=== PATIENT | male | born 1990 | race Caucasian/White ===

== ENCOUNTER 2017-02-26 23:38 | Emergency (ER) | payer MEDICAID ==
[~2017-02-26] VITALS: Ht 188 cm; Wt 70.0 kg
[~2017-02-26 23:38] MED LIST: HYDR-3965 PO; ONDA4TAB12 PO; clindamycin PO
[2017-02-27] MEDS ORDERED: CLIN-80 PO (00:04)
[2017-02-27] MEDS ORDERED: clindamycin 150mg capsule PO ONE (00:05)
[2017-02-27 00:14] VITALS: BP 125/91
== END 2017-02-27 00:17 | disposition home or self-care (01) ==
LOC: ER 23:39
DX: L03.114 Cellulitis of left upper limb (principal); G89.29 Other chronic pain; F15.10 Other stimulant abuse, uncomplicated; Z86.19 Personal history of other infectious and parasitic diseases; Z98.890 Other specified postprocedural states
CPT/HCPCS: 99283

== ENCOUNTER 2017-09-25 21:29 | Emergency (ER) | payer MEDICAID, OTHER ==
[~2017-09-25] VITALS: Ht 188 cm; Wt 48.0 kg
[~2017-09-25 21:29] MED LIST changes: +PHEN30SP9 PO
[2017-09-25 21:35] VITALS: BP 133/89
[2017-09-25] MEDS ORDERED: TRAM50TA2 PO (21:52)
[2017-09-25] MEDS ORDERED: PENI250T2 PO (22:03)
== END 2017-09-25 22:55 | disposition home or self-care (01) ==
LOC: ER 21:30
DX: K04.7 Periapical abscess without sinus (principal); G89.29 Other chronic pain; F15.90 Other stimulant use, unspecified, uncomplicated; Z79.899 Other long term (current) drug therapy
CPT/HCPCS: 64400; 99284

== ENCOUNTER 2017-10-20 10:58 | Emergency (ER) | payer MEDICAID ==
[~2017-10-20] VITALS: Ht 188 cm; Wt 77.0 kg
[~2017-10-20 10:58] MED LIST changes: +TRAM50TA2 PO
[2017-10-20 11:01] VITALS: BP 126/86
[2017-10-20] MEDS ORDERED: ketorolac trometh inj. 60 MG/2 ML VIAL IM ONE (11:45)
[2017-10-20] MEDS ORDERED: AZIT-63 PO (11:53)
[2017-10-20] MEDS ORDERED: NAPR-56 PO (12:00)
== END 2017-10-20 12:26 | disposition home or self-care (01) ==
LOC: ER 10:59
DX: J20.9 Acute bronchitis, unspecified (principal); R09.1 Pleurisy; G89.29 Other chronic pain; F15.90 Other stimulant use, unspecified, uncomplicated; F17.210 Nicotine dependence, cigarettes, uncomplicated; Z79.2 Long term (current) use of antibiotics; Z98.890 Other specified postprocedural states
CPT/HCPCS: 71046; 93005; 96372; 99284; J1885

== ENCOUNTER 2017-10-28 19:10 | Emergency (ER) | payer MEDICAID ==
[~2017-10-28] VITALS: Ht 660.3 cm; Wt 80.0 kg
[~2017-10-28 19:10] MED LIST changes: +AZIT-63 PO; +NAPR-56 PO; -TRAM50TA2 PO
[2017-10-28] MEDS ORDERED: IBUP-1986 PO (22:08)
[2017-10-28] MEDS ORDERED: ibuprofen tablet 400 MG TABLET PO ONE (22:10)
[2017-10-28 22:19] VITALS: BP 130/87
== END 2017-10-28 22:20 | disposition home or self-care (01) ==
LOC: ER 19:11
DX: M54.89 Other dorsalgia (principal); G89.29 Other chronic pain; F17.200 Nicotine dependence, unspecified, uncomplicated; F15.90 Other stimulant use, unspecified, uncomplicated; Z79.899 Other long term (current) drug therapy
CPT/HCPCS: 99283

== ENCOUNTER 2018-02-09 23:01 | Emergency (ER) | payer MEDICAID ==
[~2018-02-09] VITALS: Ht 188 cm; Wt 68.0 kg
[~2018-02-09 23:01] MED LIST changes: -AZIT-63 PO; +IBUP-1986 PO; -NAPR-56 PO
[2018-02-09 23:08] VITALS: BP 134/87
--- NOTE | 2018-02-09 23:17 | NUR ---
YESSENIA - CASE\LOG #[id number]
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
[2018-02-10] MEDS ORDERED: ketorolac trometh inj. 60 MG/2 ML VIAL IM ONE (00:20)
--- NOTE | 2018-02-10 00:47 | NUR ---
WENT TO ADMINISTER MED. HE IS TOO SLEEPY TO WAKE UP. HE WONT ROLL ONTO HIS SIDE TO GET THE MED. THEN HE FINALLY DID MOVE A BIT, I WAS PUTTING ALCOHOL ON IT. HE JERKED LIKE I WAS POKING HIM. I TOLD HIM IT WAS ONLY ALCOHOL. THEN WHEN I WENT TO GIVE THE MED I LITERALLY SAID 'HERE COMES A NEEDLE, HOLD STILL' AND WHEN I POKED THE NEEDLE INTO HIS SKIN HE LITERRALLY MOVED ALL THE WAY AWAY FROM THE NEEDLE. I JUST STOPPED. WILL NOT RE ATTEMPT R/T DANGER TO GETTING POKED BY HIS REACTION.
== END 2018-02-10 00:50 | disposition home or self-care (01) ==
LOC: ER 23:02
DX: R07.89 Other chest pain (principal); G89.29 Other chronic pain; F15.90 Other stimulant use, unspecified, uncomplicated; Z86.19 Personal history of other infectious and parasitic diseases; Z79.899 Other long term (current) drug therapy; Z79.2 Long term (current) use of antibiotics
CPT/HCPCS: 71045; 71120; 99283; J1885

== ENCOUNTER 2018-02-11 20:22 | Emergency (ER) | payer MEDICAID ==
[~2018-02-11] VITALS: Ht 188 cm; Wt 69.3 kg
[2018-02-11 20:28] VITALS: BP 131/86
[2018-02-11] MEDS ORDERED: ketorolac trometh inj. 60 MG/2 ML VIAL IM ONE (21:20)
== END 2018-02-11 22:10 | disposition home or self-care (01) ==
LOC: ER 20:22
DX: R07.89 Other chest pain (principal); G89.29 Other chronic pain; F15.10 Other stimulant abuse, uncomplicated; Z79.899 Other long term (current) drug therapy; Z86.19 Personal history of other infectious and parasitic diseases
CPT/HCPCS: 71045; 93005; 96372; 99283; J1885

== ENCOUNTER 2018-04-24 22:16 | Emergency (ER) | payer MEDICAID ==
[~2018-04-24] VITALS: Ht 188 cm; Wt 49.2 kg
[~2018-04-24 22:16] MED LIST changes: +CEPH500C5 PO
[2018-04-24 23:27] LABS: ALANINE AMINOTRANSFERASE 102 U/L (12-78); ALBUMIN 4.1 G/DL (3.4-5.0); ALBUMIN/GLOBULIN RATIO 0.9 (1.1-1.5); ALKALINE PHOSPHATASE 98 IU/L (46-116); ANION GAP 9 (8-16); ASPARTATE AMINO TRANSFERASE 64 U/L (10-37); BILIRUBIN,TOTAL 0.6 MG/DL (0.1-1.0); BLOOD UREA NITROGEN 26 MG/DL (7-18); BUN/CREATININE RATIO 29.9 (5.4-32.0); CALCIUM 9.5 MG/DL (8.5-10.1); CHLORIDE 107 MMOL/L (99-107); CREATININE 0.87 MG/DL (0.60-1.10); GLUCOSE 92 MG/DL (70-104); LIPASE 178 U/L (73-393); POTASSIUM 4.2 MMOL/L (3.5-5.1); SODIUM 144 MMOL/L (135-145); TOTAL CARBON DIOXIDE 28.4 MMOL/L (24-32); TOTAL PROTEIN 8.8 G/DL (6.4-8.2); eGFR > 90 ML/MIN
--- NOTE | 2018-04-24 23:34 | NUR ---
PT SENT TO [facility] FOR UA - HE STATES "I DON'T HAVE TO GO" PT ENCOURAGED TO AT LEAST TRY.
[2018-04-24 23:36] LABS: BASOPHILS # (AUTO) 0.1 X10'3 (0-0.2); BASOPHILS % (AUTO) 0.7 % (0-1); EOSINOPHILS % (AUTO) 0.3 % (0-6); HEMATOCRIT 45.3 % (42.0-52.0); HEMOGLOBIN 14.9 g/dl (14.0-17.9); LYMPHOCYTES # (AUTO) 1.3 X10'3 (1.1-4.8); LYMPHOCYTES % (AUTO) 10.4 % (21-51); MEAN CORPUSCULAR HGB CONC 32.8 g/dL (33.0-36.5); MEAN CORPUSCULAR VOLUME 88.4 FL (78-98); MEAN PLATELET VOLUME 9.5 FL (7.4-10.4); MONOCYTES # (AUTO) 0.8 X10'3 (0-0.9); MONOCYTES % (AUTO) 6.6 % (2-12); NEUTROPHILS # (AUTO) 10.4 X10'3 (1.8-7.7); PLATELET COUNT 307 X10'3 (140-440); RED BLOOD COUNT 5.12 X10'6 (4.70-6.10); RED CELL DISTRIBUTION WIDTH 15.9 % (11.5-14.5); WHITE BLOOD COUNT 12.6 X10'3 (4.5-11.0)
[2018-04-25] MEDS ORDERED: ondansetron 4mg rapidly disintigrating tab PO ONE (00:10)
--- NOTE | 2018-04-25 00:14 | NUR ---
pt sleeping but easily wakes when called by name. He is medicated with ODT zofran and will attempt a PO challenge in 15 mins
[2018-04-25] MEDS ORDERED: ONDA4TAB6 PO (00:39)
[2018-04-25 01:24] VITALS: BP 117/58
== END 2018-04-25 01:26 | disposition home or self-care (01) ==
LOC: ER 22:16
DX: R11.2 Nausea with vomiting, unspecified (principal); F15.10 Other stimulant abuse, uncomplicated; G89.29 Other chronic pain; M54.9 Dorsalgia, unspecified
CPT/HCPCS: 36415; 80053; 83690; 85025; 99283

== ENCOUNTER 2020-11-17 20:58 | Emergency (ER) | payer MEDICAID ==
[~2020-11-17] VITALS: Ht 188 cm; Wt 53.0 kg
[~2020-11-17 20:58] MED LIST changes: -CEPH500C5 PO; +ONDA4TAB6 PO
[2020-11-18] MEDS ORDERED: acetaminophen 325mg tablet PO ONE (00:20)
[2020-11-18] MEDS ORDERED: ibuprofen tablet 400 MG TABLET PO ONE (00:20)
[2020-11-18 00:51] VITALS: BP 132/77
== END 2020-11-18 00:55 | disposition home or self-care (01) ==
LOC: ER 20:58
DX: M25.531 Pain in right wrist (principal); G89.29 Other chronic pain; F15.90 Other stimulant use, unspecified, uncomplicated; Z98.890 Other specified postprocedural states; Z86.19 Personal history of other infectious and parasitic diseases; Z79.899 Other long term (current) drug therapy
CPT/HCPCS: 29125; 73090; 99283

== ENCOUNTER 2021-02-16 15:58 | Emergency (ER) | payer MEDICAID ==
[~2021-02-16] VITALS: Ht 188 cm; Wt 72.7 kg
[2021-02-16 16:01] VITALS: BP 134/90
== END 2021-02-16 17:58 | disposition left against medical advice (07) ==
LOC: ER 15:58
DX: M79.644 Pain in right finger(s) (principal); Z53.21 Procedure and treatment not carried out due to patient leaving prior to being seen by health care provider

== ENCOUNTER 2021-07-27 20:45 | Emergency (ER) | payer MEDICAID ==
[~2021-07-27] VITALS: Ht 188 cm; Wt 72.7 kg
[2021-07-27 21:18] VITALS: BP 133/84
== END 2021-07-28 02:28 | disposition left against medical advice (07) ==
LOC: ER 20:46
DX: T63.301A Toxic effect of unspecified spider venom, accidental (unintentional), initial encounter (principal); Z53.21 Procedure and treatment not carried out due to patient leaving prior to being seen by health care provider; Y92.89 Other specified places as the place of occurrence of the external cause